=== PATIENT | female | born 1980 | race Caucasian/White ===

== ENCOUNTER 2017-08-13 04:55 | Observation (INO) | payer OTHER, SELFPAY ==
[2017-08-13 19:52] VITALS: BMI 28.0
--- NOTE | 2017-08-14 02:53 | PC.NURSE ---
PT IS A&OX3. SHE IS S/P LAP APPY. SHE HAS RECEIVED PAIN MEDICATION SEVERAL TIMES T/O THE SHIFT FOR PAIN ON HER LLQ. SHE HAS 3 DSGS, 2 DSGS ARE C/D/I. DRAINAGE IS MARKED ON DSG NEAR UMBILICUS, NO NEW DRAINAGE THIS SHIFT. SHE HAS AMBULATED TO THE BATHROOM WITH ASSISTANCE FROM HER . DENIES HAVING A BM OR PASSING GAS. SHE REPORTED THAT SHE HAS ONLY TAKEN SMALL AMOUNT OF CLEAR LIQUIDS PRIOR TO SHIFT CHANGE AND SHE HAD BROTH DURING THIS SHIFT; TOLERATED WELL.
[2017-08-14 02:55] VITALS: BP 95/51; PULSE 68; RESP 16; TEMP 36.7
[2017-08-14 03:59] VITALS: BP 97/68; PULSE 62; RESP 18; TEMP 36.7; O2SAT 99
[2017-08-14 06:28] LABS: Basophils % 0.3 % (0.1-2.0); Eosinophils % 0.6 % (0.1-12.0); Hematocrit 33.2 % (37.0-47.0); Hemoglobin 10.5 g/dL (12.2-16.2); Lymphocytes # 1.7 K/mm3 (0.7-4.5); Lymphocytes % 21.8 K/mm3 (10-50); Mean Corpuscular HGB Conc 31.7 g/dL (31.8-35.4); Mean Corpuscular Hemoglobin 28.7 pg (27.0-31.2); Mean Corpuscular Volume 90.7 fl (81-99); Mean Platelet Volume 7.4 fl (7.4-10.4); Monocytes # 0.3 K/mm3 (0.1-1.0); Monocytes % 3.9 % (1.7-9.3); Neutrophils # 5.8 K/mm3 (1.8-7.8); Neutrophils % 73.5 % (37.0-80.0); Platelet Count 212 K/mm3 (142-424); Red Blood Count 3.66 M/mm3 (4.20-5.40); Red Cell Distribution Width 12.2 % (11.5-17.5)
[2017-08-14 06:40] LABS: Alanine Aminotransferase 14 U/L (12-78); Albumin Level 2.6 gm/dL (3.4-5.0); Albumin/Globulin Ratio 0.8 (1.1-1.8); Alkaline Phosphatase 54 U/L (46-116); Anion Gap 10.8 mEq/L (5-15); Aspartate Amino Transferase 10 U/L (15-37); Bilirubin,Total 0.4 mg/dL (0.2-1.0); Blood Urea Nitrogen 7 mg/dL (7-18); Calcium 7.8 mg/dL (8.5-10.1); Carbon Dioxide 28 mmol/L (21.0-32.0); Chloride 105 mmol/L (98-107); Creatinine Clearance Estimated 138 mg/ml (0-300); Creatinine,Serum 0.72 mg/dL (0.55-1.02); Estimated Glomerular Filt Rate > 60 ml/min (>60); GFR (African American) > 60 ML/MIN (>60); Globulin 3.1 gm/dl (1.3-3.2); Glucose 104 mg/dL (74-106); Potassium 3.8 mmoL/L (3.5-5.1); Sodium 140 mmol/L (136-145); Total Protein,Serum 5.7 gm/dL (6.4-8.2)
--- NOTE | 2017-08-14 07:37 | PC.NURSE ---
VERBAL REPORT WAS PASSED & GIVEN TO CHITRA ARELLANO
--- NOTE | 2017-08-14 08:05 | P.PN_ITS ---
Internal Medicine - PN: Subj *Date: 08/14/17 *Time: 08:01 Interval history: Patient has continued to complain of abdominal pain although her pain is mostly from her incisions. At surgery yesterday she appeared to have a normal appendix. Gynecologic consultation was recommended. 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 She admits she has had an ovarian cyst before but the pain she experienced that was diagnosed as appendicitis was much different than previous ovarian cyst related pain. She denies flatus. She has had liquids without complications She is awake and alert. Abdomen is soft. Bowel sounds are diminished. Lungs are clear. Heart has regular rate and rhythm. Ambulate patient. Continue liquids. If she is able to tolerate these and ambulate more today with pain control, She will be discharged home. Exam Vital signs and Labs for Last 24 Hours: Temp Pulse Resp BP Pulse Ox 98.1 F 62 18 97/68 99 08/14/17 03:59 08/14/17 03:59 08/14/17 03:59 08/14/17 03:59 08/14/17 03:59 Short CBC 08/14/17 Range/Units 06:00 WBC 8.0 (4.8-10.8) K/mm3 Hgb 10.5 L (12.2-16.2) g/dL Hct 33.2 L (37.0-47.0) % Plt Count 212 (142-424) K/mm3 BMP 08/14/17 06:00 Sodium 140 Potassium 3.8 Chloride 105 Carbon Dioxide 28 BUN 7 Creatinine 0.72 Glucose 104 Calcium 7.8 L Liver Function 08/14/17 Range/Units 06:00 Total Bilirubin 0.4 (0.2-1.0) mg/dL AST 10 L (15-37) U/L ALT 14 (12-78) U/L Alkaline Phosphatase 54 (46-116) U/L Albumin 2.6 L (3.4-5.0) gm/dL I & O for Last 24 hours: Intake & Output 08/11/17 08/12/17 08/13/17 08/14/17 11:59 11:59 11:59 11:59 Intake Total 2449 / 2449 Balance 2449 / 2449 Assessment and Plan (1) Appendicitis, acute Current visit: Yes Status: Acute Category: Medical Code(s): K35.80 - Unspecified acute appendicitis (2) Right lower quadrant abdominal pain Current visit: Yes Status: Acute Category: Medical Code(s): R10.31 - Right lower quadrant pain
[2017-08-14 08:24] VITALS: O2SAT 99
[2017-08-14 09:26] VITALS: BP 110/59; PULSE 67; RESP 16; TEMP 36.4; O2SAT 99
--- NOTE | 2017-08-14 10:13 | HMH.PHAVTE ---
[facility] [place] Pharmacy VTE Monitoring - Patient Demographics Admission date: 08/13/17 Report Date: 08/14/17 Time: 10:13 Allergies/Adverse Reactions: No Known Allergies Allergy (Verified 08/13/17 19:52) Height: 1.73 m Weight: 83.519 kg Patient Problems: Current Active Problems Appendicitis, acute (Acute) Right lower quadrant abdominal pain (Acute) - VTE Risk Labs: VTE Related Lab Results Hgb 10.5 g/dL (12.2-16.2) L 08/14/17 06:00 Hct 33.2 % (37.0-47.0) L 08/14/17 06:00 Plt Count 212 K/mm3 (142-424) 08/14/17 06:00 BUN 7 mg/dL (7-18) 08/14/17 06:00 Creatinine 0.72 mg/dL (0.55-1.02) 08/14/17 06:00 Estimated Creat Clear 138 mg/ml (0-300) 08/14/17 06:00 Was VTE Risk Assessment Performed: Yes VTE Score: 1 VTE Risk Level: Very Low Risk Clinical Trial Participant: No - Prophylaxis VTE Prophylaxis Ordered?: Yes Types of VTE Prophylaxis: TEDS Knee High Location of Applied Device: Bilateral Lower Extremeties
--- NOTE | 2017-08-14 10:39 | P.PN_ITS ---
Internal Medicine - PN: Subj *Date: 08/14/17 *Time: 10:36 Interval history: Patient still has some LEFT lower quadrant abdominal pain. Overall however feels MUCH better than when admitted and better than this morning. Exam Vital signs and Labs for Last 24 Hours: Temp Pulse Resp BP Pulse Ox 97.6 F 67 16 110/59 99 08/14/17 09:26 08/14/17 09:26 08/14/17 09:26 08/14/17 09:26 08/14/17 09:26 Short CBC 08/14/17 Range/Units 06:00 WBC 8.0 (4.8-10.8) K/mm3 Hgb 10.5 L (12.2-16.2) g/dL Hct 33.2 L (37.0-47.0) % Plt Count 212 (142-424) K/mm3 BMP 08/14/17 06:00 Sodium 140 Potassium 3.8 Chloride 105 Carbon Dioxide 28 BUN 7 Creatinine 0.72 Glucose 104 Calcium 7.8 L Liver Function 08/14/17 Range/Units 06:00 Total Bilirubin 0.4 (0.2-1.0) mg/dL AST 10 L (15-37) U/L ALT 14 (12-78) U/L Alkaline Phosphatase 54 (46-116) U/L Albumin 2.6 L (3.4-5.0) gm/dL I & O for Last 24 hours: Intake & Output 08/11/17 08/12/17 08/13/17 08/14/17 11:59 11:59 11:59 11:59 Intake Total 2449 / 2449 Balance 2449 / 2449 - *Routine Abdominal Exam Present: soft, tenderness, surgical scars. Absent: rebound, guarding Comments: Her abdomen is soft. Mild incisional tenderness and LEFT lower quadrant tenderness. No RIGHT sided tenderness. Assessment and Plan (1) Appendicitis, acute Current visit: Yes Status: Acute Qualifiers: Acute appendicitis type: unspecified acute appendicitis type Qualified Code (s): K35.80 - Unspecified acute appendicitis Category: Medical Code(s): K35.80 - Unspecified acute appendicitis Probable discharge home later today on oral pain medications and outpatient gynecology follow up. Surgical follow up in approximately 2 weeks.
[2017-08-14 12:57] VITALS: BP 98/60; PULSE 54; RESP 16; TEMP 36.6
[2017-08-15 10:18] LABS: POC Glucose,Bedside 145 mg/dL
--- NOTE | 2017-08-16 07:17 | HMH.DCSUM ---
General - General Admission date: 08/13/17 Discharge date: 08/14/17 HPI HPI: 37-year-old female presented to the emergency department with right lower quadrant abdominal pain. Workup including CT scan was indicative of early acute appendicitis. Patient was admitted to the medical service with surgical consultation for appendectomy. Objective Vital signs: Temp Pulse Resp BP Pulse Ox 97.8 F 54 L 16 98/60 99 08/14/17 12:57 08/14/17 12:57 08/14/17 12:57 08/14/17 12:57 08/14/17 09:26 Hospital Course Hospital Course: Patient was admitted and on the morning of admission underwent upper scopic appendectomy. Appendix appeared normal upon removal. Further evaluation through the laparoscopy showed some cloudy fluid in the cul-de-sac but no source. Postoperatively patient's pain was improved. Patient did tell me postoperatively that she had been having change in periods with periods becoming more painful over the last 6 months and already has a gynecology appointment scheduled as an outpatient. Patient was discharged home. Patient will follow up with surgical service in approximately a week. Results Labs on day of discharge: Labs from last 24 hours 08/14/17 06:13 POC Glucose 145 DS: Diagnosis - Discharge Diagnosis (1) Appendicitis, acute Status: Acute (2) Right lower quadrant abdominal pain Status: Acute Meds Home Medications Medication Instructions Recorded Confirmed Type Levonorgestrel-Ethin Estradiol 1 tab PO DAILY 08/13/17 08/13/17 History [Larissia-28 Tablet] Allergies Allergy/AdvReac Type Severity Reaction Status Date / Time No Known Allergies Allergy Verified 08/13/17 19:52 Disposition Disposition: Home, Self-Care
== END 2017-08-14 15:00 | disposition home or self-care (01) ==
PROVIDERS: Admitting Provider Family Medicine; Emergency Provider Emergency Medicine; PCP Family Medicine; Visit Provider Family Medicine
DX: K35.89 Other acute appendicitis (principal)
CPT/HCPCS: 44970; 36415; 71010; 74177; 80053; 82150; 82962; 83690; 84703; 85025; 90686; 90732; 99285; G0378; J2270; J2405; J2543; Q9967

== ENCOUNTER → 2020-10-06 08:48 | Outpatient (CLI) | payer OTHER, SELFPAY ==
--- NOTE | 2020-10-06 08:53 | US_ITS ---
PROCEDURE: US ABDOMEN LIMITED CLINICAL INDICATION: RUQ PAIN COMPARISON: No exams were available for comparison FINDINGS: PANCREAS: Unremarkable. No obvious mass or abnormal fluid collection. No ductal dilatation LIVER: No focal liver lesions demonstrated. Homogeneous echogenicity. No intrahepatic biliary ductal dilatation evident. There is appropriate direction of blood flow within a non dilated portal vein RIGHT KIDNEY: Unremarkable. Normal size and echogenicity. No hydronephrosis GALLBLADDER: There is cholelithiasis with a single stone measuring 13 mm.. Common bile duct is normal at 3 mm. Gallbladder wall does appear slightly thickened 4 mm. No pericholecystic fluid. IMPRESSION: Cholelithiasis with mildly thickened gallbladder wall Dictated by: Kang Marcelo MD 10/06/2020 17:14 Kang Marcelo MD in [place] 10/06/2020 17:14
== END ==
PROVIDERS: PCP Family Medicine; Visit Provider Family Medicine
DX: R10.11 Right upper quadrant pain (principal)
CPT/HCPCS: 76705

== ENCOUNTER → 2020-11-09 11:08 | Outpatient (CLI) | payer OTHER, SELFPAY ==
[2020-11-09 11:36] LABS: Basophils # 0.1 K/mm3 (0-0.2); Basophils % 1.1 % (0.1-2.0); Eosinophils # 0.1 K/mm3 (0.0-0.4); Eosinophils % 2.3 % (0.1-12.0); Hemoglobin 14.7 g/dL (12.2-16.2); Lymphocytes # 1.3 K/mm3 (0.7-4.5); Lymphocytes % 24.4 % (10-50); Mean Corpuscular HGB Conc 33.5 g/dL (31.8-35.4); Mean Corpuscular Hemoglobin 29.7 pg (27.0-31.2); Mean Corpuscular Volume 88.5 fl (81-99); Mean Platelet Volume 7.4 fl (7.4-10.4); Monocytes # 0.3 K/mm3 (0.1-1.0); Monocytes % 5.2 % (1.7-9.3); Neutrophils # 3.5 K/mm3 (1.8-7.8); Neutrophils % 67.1 % (37.0-80.0); Platelet Count 354 K/mm3 (142-424); Red Blood Count 4.97 M/mm3 (4.20-5.40); Red Cell Distribution Width 12.4 % (11.5-17.5); White Blood Count 5.3 K/mm3 (4.8-10.8)
[2020-11-09 11:48] LABS: Urine Pregnancy, HCG Qual. Negative (Negative)
[2020-11-09 12:10] LABS: Chloride 102 mmol/L (98-107); Potassium 4.3 mmoL/L (3.5-5.1); Sodium 140 mmol/L (136-145)
[2020-11-09 12:12] LABS: Blood Urea Nitrogen 6 mg/dl (7-17); Estimated Glomerular Filt Rate 92 ml/min (>60); GFR (African American) 111 ML/MIN (>60)
[2020-11-09 12:13] LABS: Alanine Aminotransferase 16 U/L (12-78); Albumin Level 5.2 g/dl (3.5-5.0); Albumin/Globulin Ratio 1.7 (1.1-1.8); Alkaline Phosphatase 75 U/L (38-126); Anion Gap 13.3 mEq/L (5-15); Aspartate Amino Transferase 22 U/L (14-36); Bilirubin,Total 0.5 mg/dl (0.2-1.3); Calcium 9.9 mg/dl (8.4-10.2); Carbon Dioxide 29 mmol/L (22.0-30.0); Globulin 3.1 g/dL (1.3-3.2); Glucose 93 mg/dl (74-100); Total Protein,Serum 8.3 g/dl (6.3-8.2)
[2020-11-09 12:44] LABS: Coronavirus 19 IgG Antibody Negative (Negative); Coronavirus 19 IgM Antibody Negative (Negative)
== END ==
PROVIDERS: Visit Provider Surgery
DX: Z01.818 Encounter for other preprocedural examination (principal); Z11.52 Encounter for screening for COVID-19; K80.20 Calculus of gallbladder without cholecystitis without obstruction
CPT/HCPCS: 36415; 80053; 81025; 85025; 86328

== ENCOUNTER 2020-11-10 12:03 | Day surgery (SDC) | payer OTHER, SELFPAY ==
[2020-11-06 15:15] VITALS: BMI 28.8
[2020-11-10] VITALS (10 sets, daily range): BP systolic 114–148; BP diastolic 56–79; PULSE 54–80; RESP 12–18; TEMP 6.1–43; O2SAT 98–100
--- NOTE | 2020-11-10 14:29 | HMH.OPNOTE ---
Date of procedure: 11/10/20 Pre-op Diagnosis:: Symptomatic gallstones Post-op Diagnosis:: Same Procedure performed:: Laparoscopic cholecystectomy Surgeon:: Elvis Dupont MD SYSTEM ADMINISTRATION ADVISOR:: Maurice Jones Anesthesia: GETA Estimated blood loss (mL): 20 Clinical Note:: Patient is a very pleasant 40-year-old female whom I had seen in the past in follow-up after appendectomy. She had undergone laparoscopic appendectomy by Dr. Elvis Durant and I followed her up in the office. I saw her in the office about 3-4 weeks ago as a consultation for gallbladder. At that time she had an episode consistent with a gallbladder attack prior to that.. She developed some significant pain in the right upper quadrant which persisted for about 1 hour. She then had some vague pain persisting. She was seen in her primary care provider's office and found to be tender in the right upper quadrant. She underwent gallbladder ultrasound which reveals findings consistent with 13 mm gallstone with possibly mild gallbladder wall thickening with normal common bile duct. At the time I saw her in the office her symptoms had resolved. I had discussed with her that she may have had a gallbladder attack but plan was made to forego surgery with a several month follow-up. She was quite agreeable with this at the time. However, she had developed significant recurrent symptoms. She has had pain in the right abdomen with several attacks over the past week or so. This is been quite significant. She wished to pursue cholecystectomy. Operative findings:: She has somewhat thickened gallbladder. There is a moderate sized stone. She does have some mild distention of the stomach and colon at the hepatic flexure. Operative note:: Patient was taken to the operating room. She was given preoperative intravenous antibiotics. In the operating room she was placed in a supine position. General anesthesia was induced. Abdomen was prepped and draped in the standard surgical fashion. Subumbilical incision was made in previous laparoscopy scar. While performing abdominal wall lift Veress needle was inserted. CO2 pneumoperitoneum was achieved 15 mmHg. 11 mm optical trocar was inserted at the umbilicus. Intraperitoneal contents were visualized. She was positioned in reverse Trendelenburg left side down. A couple 5 mm trochars were inserted in the right upper abdomen. 10 mm trocar was inserted in the epigastrium. Gallbladder was identified and grasped retracted anteriorly and superiorly over the dome of the liver. Infundibulum the gallbladder was retracted anterolaterally. Blunt dissection was carried out the neck of the gallbladder bluntly incising the visceral peritoneum. The cystic duct and cystic artery were ultimately identified and isolated. Cystic duct was isolated and multiply clipped and sharply divided. Cystic artery was carefully coagulated with ALEXANDER ultrasonic harmonic venancio and divided. Gallbladder was dissected free from the liver in a retrograde fashion using ALEXANDER ultrasonic harmonic venancio. Gallbladder was placed within an Endo Catch retrieval device and removed from the peritoneal cavity via the umbilical trocar site. Limited irrigation was performed of the gallbladder fossa and perihepatic space. Trochars were then removed as CO2 pneumoperitoneum was evacuated. Fascia at the umbilicus was closed with several interrupted 0 Vicryl sutures. 0 Vicryl suture was used to close the epigastric port site anterior rectus fascia. Local anesthetic was infiltrated. Skin incisions were closed with 4-0 Monocryl subcuticular fashion. Steri-Strips and dressings were applied. Condition: stable Disposition: PACU Specimens:: Gallbladder and contents Complications:: None immediately apparent
--- NOTE | 2020-11-10 14:37 | P.PN_ITS ---
[facility] Anesthesia Record Part I Intake, IV Amount: 1,500 Estimated blood loss (mL): 0 Urine output (mL): 0 Blood Pressure: 148/56 SaO2: 98 Pulse Rate: 74 Respiratory Rate: 12 Temperature: 98.4 F Patient is:: Awake, Stable Stable to PACU at:: 14:30
--- NOTE | 2020-11-10 14:37 | HMH.ANESCL ---
[facility] Anesthesia Checklist - Structural Data Admitted From: Home Planned Operative Procedure/s: zenon garcia Consent for Planned Operative Procedure(s) Verified: Yes - Airway Assessment C-Spine Mobility Assessed: Yes TMJ Mobility Assessed: Yes Dentition: Good Dentition - Neurological Assessment Level of Consciousness: Awake, Alert, Appropriate - Anesthesia Plan Anesthesia Risk discussed: Yes Anesthesia Plan: Verified ASA Class: II Anesthesia Type: General [facility] History I have reviewed the patient's past medical history: Yes Medical History: Denies:: Cancer, Diabetes Mellitus Type 1, Diabetes Mellitus Type 2, Internal Pacemaker, MRSA, Seizures *Have you ever received a pneumonia vaccine?: No *Have you received a flu vaccine this season?: No Anesthesia experience/problems:: none Other Surgeries: Yes: Appendectomy, . No: Pacemaker Amputation: No Fractures: No - *Social History Last grade of school completed: Advanced degree Smoking Status: Never smoker Alcohol Intake: never Alcohol Intake Frequency:: other Substance Use Type: denies use *Occupational Status:: unemployed Housing: house Household Members: spouse, family *Travel in the last 8 weeks: None Family Hx:: Stroke, Coronary Artery Disease
--- NOTE | 2020-11-11 13:44 | HMH.ANESII ---
[facility] Anesthesia Record Part II Discharge Time: 15:00 Destination: [facility] PACU nurse assessment reviewed?: Yes Patient Condition:: Good Anesthesia Complications:: None Swallowing reflex intact?: Yes Cyanosis?: No (127/68) Blood Pressure: 127/68 Pulse Rate: 58 Temperature: 97.1 F Mental Status: Alert & Oriented Pain level:: 0 Nausea and/or vomitting:: None Intake, IV Amount: 1,500
[2020-11-11 13:46] VITALS: BP 127/68; PULSE 58; TEMP 36.2
== END 2020-11-10 15:44 | disposition home or self-care (01) ==
LOC: OR 12:07
PROVIDERS: PCP Family Medicine; Visit Provider Surgery
PROC: 0FT44ZZ Resection of Gallbladder, Percutaneous Endoscopic Approach (ICD-10-PCS; CPT 47562; principal; 2020-11-10 13:45)
DX: K80.80 Other cholelithiasis without obstruction (principal); Z90.49 Acquired absence of other specified parts of digestive tract; Z82.49 Family history of ischemic heart disease and other diseases of the circulatory system; Z82.3 Family history of stroke
CPT/HCPCS: 47562; 96374; J2405; J2710

== ENCOUNTER 2022-02-10 08:03 | Emergency (ER) | payer OTHER, SELFPAY ==
[2022-02-10 08:10] VITALS: BP 130/87; PULSE 80; RESP 20; TEMP 37.1; O2SAT 100; BMI 28.1
--- NOTE | 2022-02-10 08:48 | HMH.EDUTC ---
[facility] [place] Disposition Clinical Impression: Pharyngitis Qualifiers: Pharyngitis/tonsillitis etiology: unspecified etiology Qualified Code(s): J02.9 - Acute pharyngitis, unspecified Disposition: Home, Self-Care Condition on Discharge: Good Instructions: Viral Pharyngitis, Sore Throat Additional Instructions: *Monitor Temp, Over the counter Motrin or Tylenol as directed/as needed Tylenol every 4 hours and Motrin every 6 hours (as long as your family doctor has told you that you can take it) for fever or pain. and straight to ER if unable to lower temp less than 101.0 after medication given *Warm salt water gargles may help to soothe the throat *Throat Lozenges *Warm fluids like tea with honey may help to soothe the throat *Sleep elevated *Humidifier/Vaporizer Your throat swab was sent for culture. Those results are typically sent to your primary care. Be sure to follow up in 2-3 days with your family doctor/primary care physician if no improvement so they can review those result and treat if necessary. If you don?t have a primary care doctor, I recommend you get one but in the mean time, you will have to return to a walk in clinic Follow up IMMEDIATELY for new or worsening symptoms or no Noticeable improvement over the next 48-72 hours. 911 for difficulty breathing or swallowing Referrals: Mynor Jerry MD [Primary Care Provider] - As needed Time of Disposition: 09:14 Medical Decision Making - Blayne Inquiry Pt receiving controlled substance: No Blayne was queried for this patient: No Vital Signs: 02/10/22 08:10 Temperature 98.8 F Temperature Source Oral Pulse Rate [Right Brachial] 80 Respiratory Rate 20 Blood Pressure [Right Arm] 130/87 Blood Pressure Mean [Right Arm] 101 Blood Pressure Source [Right Arm] Automatic Cuff Blood Pressure Position [Right Arm] Sitting 02 Sat by Pulse Oximetry 100 Oxygen Delivery Method Room Air - Lab Data Lab results reviewed: Yes: I reviewed the patient's lab results. Lab Results 02/10/22 08:20: Group A Strep Rapid Negative Orders (Tests/Meds): ORDERS Category Date Time Status Strep Screen Confirmation Stat Micro 02/10/22 08:20 Received [facility] [place] HPI - General Stated complaint: sore throat Time Seen by Provider: 02/10/22 08:50 Mode of Arrival: Ambulatory Source of Information: Patient Limitations: No Limitations Description of Symptoms (Recalled from Triage Doc. by RN): PATIENT C/O SORE THROAT SINCE MONDAY. DENIES ANY OTHER SYMPTOMS HEENT Symptoms (Recalled from RN notes): Yes Resp Symptoms (Recalled from RN notes): No Skin Symptoms (Recalled from RN notes): No MS Symptoms (Recalled from RN notes): No Functional Status (Recalled from RN notes): WNL - History of Present Illness Provider Complaint: Patient states that she has been having sore throat since Monday States that it has continued to get worse States that today her throat is burning and scratchy and she could barely talk this morning States that at first she thought it was allergies but not so sure now - Related Data Home Medications Medication Instructions Recorded Confirmed Levonorgestrel/Ethin.estradiol 1 tab PO DAILY 08/13/17 12/07/20 [Larissia-28 Tablet] Allergies Allergy/AdvReac Type Severity Reaction Status Date / Time No Known Allergies Allergy Verified 12/07/20 09:33 - Worker's Comp Is this a Worker's Comp case?: No [facility] History - Hepatitis A Screen Attestation statement:: This patient has been screened for Hepatitis A risk factors. I have reviewed the patient's past medical history: Yes Medical History: Denies:: Cancer, Diabetes Mellitus Type 1, Diabetes Mellitus Type 2, Internal Pacemaker, MRSA, Seizures Other Surgeries: Yes: Appendectomy, Cholecystectomy, . No: Pacemaker Amputation: No Fractures: No - Social History Smoking Status: Never smoker Alcohol Intake: never Alcohol Intake Frequency:: other Substance Use Type: denies use Occu
[2022-02-10 08:59] LABS: Strep Scrn Group A (Rapid) Negative (Negative)
[2022-02-10 09:18] VITALS: BP 130/87; PULSE 80; RESP 20; TEMP 37.1; O2SAT 100
== END 2022-02-10 09:22 | disposition home or self-care (01) ==
PROVIDERS: Emergency Provider Nurse Practitioner; PCP Family Medicine
DX: J02.9 Acute pharyngitis, unspecified (principal)
CPT/HCPCS: 87430; 99212; G0463